=== PATIENT | male | born 1995 | race African-American/Black ===

== ENCOUNTER 2018-01-19 06:33 | Emergency (ER) | payer MEDICAID, SELFPAY ==
--- NOTE | 2018-01-19 09:28 | RAD ---
PORTABLE CHEST: Date: 01/19/18 PROVIDED CLINICAL HISTORY: Chest pain. FINDINGS: Cardiac silhouette appears prominent, likely at least partially on the basis of portable technique. L ungs appear clear. There is no pleural fluid or pneumothorax apparent. IMPRESSION: No evidence for an acute cardiopulmonary process. POS: [facility]
== END 2018-01-19 09:15 | disposition home or self-care (01) ==
LOC: ERS 06:33
DX: R07.89 Other chest pain (principal)
CPT/HCPCS: 71045; 93005